=== PATIENT | female | born 1955 | race Caucasian/White ===

== ENCOUNTER → 2018-06-29 | Outpatient (CLI) | payer MEDICARE ==
--- NOTE | 2018-06-29 17:01 | PCVCIMAG ---
APPROVED REPORT Study performed: 06/29/2018 16:01:51 Exam: Stress Echocardiogram Indication: Chest pain , Hyperlipidemia, Hypertension Stress Nurse: Charu Regan RN Status: routine Ht: 5 ft 2 in HR: 101 bpm BP: 130/80 mmHg Rhythm: NSR Medical History Medical History: HTN, Hyperlipidemia Procedure The patient underwent an Exercise Stress Test using the Augustin Protocol. Blood pressure, heart rate, and EKG were monitored. An Echocardiogram was performed by vending machine technician in four stages in quad fashion. At peak stress, four selected images were obtained and placed side by side with resting images for comparison. Stress Test Details Stress Test: Exercise stress testing was performed using a Augustin protocol. HR Resting HR: 101 bpmMax Heart Rate (APMHR): 155 bpm Max HR Achieved: 141 bpmTarget HR (85% APMHR): 131 bpm % of APMHR: 90 Recovery HR: 101 bpm HR response to stress: Normal HR response to stress BP Resting BP: 130/80 mmHg Max BP: 190/80 mmHg Recovery BP: 142/68 mmHg BP response to stress: Normal blood pressure response to stress. ECG Resting ECG: Sinus Rhythm Stress ECG: Sinus Rhythm Recovery ECG: Sinus Rhythm Clinical Reason for Termination: Maximal effort Stress Symptoms: Dyspnea, Fatigue Exercise duration: 3 min 43 sec Highest Stage Achieved: Stage 1: 1.7 mph at 10% grade. Exercise capacity: 6.30 METs Overall Exercise Capacity for Age: Poor Pre-Stress Echo The resting Echocardiogram showed normal left ventricular contractility with an estimated Ejection Fraction of about 55-60%. Normal wall motion in all segments on baseline images. Post-Stress Echo The stress Echocardiogram showed normal left ventricular contractility with an estimated Ejection Fraction of about 60-65%. Normal augmentation of wall motion in all segments on post stress images. Clinical No clinical or ECG evidence for ischemia. Conclusion Clinical Response: Non-ischemic Exercise Capacity: Below Average Stress ECG Response: Non-ischemic Stress Echo Images: Non-ischemic The left ventricle is normal in size and wall thickness in both the rest and stress images. Other Information Study Quality: Good <Conclusion> The left ventricle is normal in size and wall thickness in both the rest and stress images.
== END | disposition home or self-care (01) ==
LOC: PCVCIMAG 15:52
PROVIDERS: ATTEND Family Medicine
DX: R07.9 Chest pain, unspecified (principal); I10 Essential (primary) hypertension; E78.2 Mixed hyperlipidemia
CPT/HCPCS: 93325; 93351